=== PATIENT | female | born 1955 ===

== ENCOUNTER 2020-06-20 09:46 | Outpatient (CLI) | payer OTHER | END 2020-06-20 09:55 | disposition HB | LOC: TOM 09:46 | DX: K63.5 Polyp of colon (principal) ==

== ENCOUNTER 2021-12-18 08:54 | Outpatient (CLI) | payer OTHER | END 2021-12-18 08:59 | disposition home or self-care (01) | LOC: TOM 08:54 | PROVIDERS: ATTEND Internal Medicine Gastroenterology | DX: R19.5 Other fecal abnormalities (principal) ==